=== PATIENT | male | born 1955 | race Caucasian/White ===

== ENCOUNTER 2018-12-29 11:31 | Day surgery (SDC) | payer OTHER ==
[2018-12-25 15:43] VITALS: BMI 28.7
[~2018-12-29 11:31] MED LIST: CYCLOPENTOLATE HCL 1% OPHTH SOLN 2 ML BOTTLE OD SCH; KETOROLAC TROMETHAMINE 0.5% EYE DROP 1 DROP DROPS OD SCH; OFLOXACIN 0.3% OPHTHALMIC SOLUTION 5 ML BOTTLE OD SCH; PHENYLEPHRINE 2.5% OPHTH SOLN 15 ML BOTTLE OD SCH; TROPICAMIDE 1% OPHTH SOLN 15 ML BOTTLE OD SCH
[2018-12-29] MEDS ORDERED: CYCLOPENTOLATE HCL 1% OPHTH SOLN 2 ML BOTTLE ONE (11:43)
[2018-12-29] MEDS ORDERED: OFLOXACIN 0.3% OPHTHALMIC SOLUTION 5 ML BOTTLE ONE (11:43)
[2018-12-29] MEDS ORDERED: KETOROLAC TROMETHAMINE 0.5% EYE DROP 1 DROP DROPS ONE (11:43)
[2018-12-29] MEDS ORDERED: EPI-SHUGARCAINE (EPINEPHRINE 0.025% & LIDOCAINE-PF 0.75%) 4ML ONE (11:44)
[2018-12-29] MEDS ORDERED: TROPICAMIDE 1% OPHTH SOLN 15 ML BOTTLE ONE (11:44)
[2018-12-29] MEDS ORDERED: PHENYLEPHRINE 2.5% OPHTH SOLN 15 ML BOTTLE ONE (11:44)
[2018-12-29] MEDS ORDERED: NEO/POLYMYX B SULF/DEXAMETH OPHTHALMIC 5ML BOTTLE ONE (11:45)
[2018-12-29] MEDS ORDERED: POVIDONE-IODINE 5% OPHTHALMIC PREP 30 ML SOLUTION ONE (11:45)
[2018-12-29] MEDS ORDERED: TETRACAINE 0.5% OPHTH SOLN 2 ML BOTTLE ONE (11:45)
[2018-12-29] MEDS ORDERED: ACETYLCHOLINE 1:100 INTRA-OCUL 20 MG/2 ML KIT ONE ×2 (11:45→12:51)
[2018-12-29] MEDS ORDERED: PHENYLEPHRINE 2.5% OPHTH SOLN 15 ML BOTTLE OD ONE ×4 (12:05→12:20)
[2018-12-29] MEDS ORDERED: TROPICAMIDE 1% OPHTH SOLN 15 ML BOTTLE OD ONE ×4 (12:05→12:20)
[2018-12-29] MEDS ORDERED: CYCLOPENTOLATE HCL 1% OPHTH SOLN 2 ML BOTTLE OD ONE ×4 (12:05→12:20)
[2018-12-29] MEDS ORDERED: OFLOXACIN 0.3% OPHTHALMIC SOLUTION 5 ML BOTTLE OD ONE ×4 (12:05→12:20)
[2018-12-29] MEDS ORDERED: KETOROLAC TROMETHAMINE 0.5% EYE DROP 1 DROP DROPS OD ONE ×4 (12:05→12:20)
[2018-12-29] MEDS ORDERED: ACETAMINOPHEN 325 MG TABLET (FP) PO PRN (12:40)
[2018-12-29] MEDS ORDERED: MIDAZOLAM HCL 2 MG/2 ML SINGLE DOSE VIAL ONE (13:00)
[2018-12-29 14:45] VITALS: BP 121/65; PULSE 56; TEMP 98.1
--- NOTE | 2018-12-30 00:56 | OP ---
DATE OF OPERATION: 12/29/2018 PREOPERATIVE DIAGNOSIS: Cataract, right eye. POSTOPERATIVE DIAGNOSIS: Cataract, right eye. PROCEDURE: Cataract extraction via phacoemulsification with insertion of posterior chamber lens implant, right eye. SURGEON: Sandra Mcfarland MD BAG MACHINE SET UP OPERATOR: Sandra Mcfarland MD ANESTHESIA: Topical with sedation. ESTIMATED BLOOD LOSS: Less than 1 mL. COMPLICATIONS: None. SPECIMENS: None. DESCRIPTION OF PROCEDURE: The patient was identified in the holding area. After all risks, benefits, and alternatives were explained to the patient, informed consent was obtained. The right eye was marked with a marking pen. The patient then entered the operating room on an eye stretcher. After formal timeout was performed, topical tetracaine eye drops were instilled into the right eye. The right eye was then prepped and draped in the usual sterile fashion. An eyelid speculum was placed between the eyelids of the right eye. A supratemporal paracentesis incision was created using a 15-degree blade. Topical preservative-free epinephrine and preservative-free lidocaine was then entered into the anterior chamber. Viscoelastic was then directed into the anterior chamber. A 2.4-mm keratome blade was then used to make an infratemporal incision. A 360-degree continuous curvilinear capsulorrhexis was then created using bent cystotome and Utrata forceps. Hydrodissection was performed using balanced saline solution on a cannula. Phacoemulsification was introduced and disassembled the nucleus in its entirety. Irrigation/aspiration was then used to remove any remaining cortical material from the eye. The capsular bag was reformed using viscoelastic. An Thiago mode SV25T0 with a power of 15.0 diopters, serial number [id number], was inspected and found to be defect free and injected into the capsular bag. Irrigation/aspiration was then used to remove any remaining cortical material from the eye and viscoelastic from the eye, especially posterior to the optic. Then intracameral injection of Miochol was then administered and then the pupil came down and was round. All wounds were hydrated with balanced-saline solution and noted to be water tight. Then the intraocular lens was centered, again using a Sinskey hook and the centration of the lens was confirmed using the Purkinje images of the microscope light reflex until it was noted that the light reflex was perfectly centered into the center of the optic and the center of the ring. Once that was confirmed again, all wounds were then reconfirmed to be water tight. It was noted that the anterior chamber was deep to the eye and had adequate pressure. The lens was perfectly centered in the capsular bag and there was red reflex present. Topical antibiotic eye drops and ointment were then administered to the right eye. The eyelid speculum was removed from the right eye. The right eye was shielded. Patient tolerated the procedure well and left the operating room in stable condition. Will follow up in the eye clinic tomorrow morning at 10 o'clock. SANDRA MCFARLAND M.D. [id number]
== END 2018-12-29 14:55 | disposition home or self-care (01) ==
LOC: FASU 11:31
PROVIDERS: ATTEND Ophthalmology
PROC: 08RJ3JZ Replacement of Right Lens with Synthetic Substitute, Percutaneous Approach (ICD-10-PCS; principal; 2018-12-29 13:22)
DX: H26.9 Unspecified cataract (principal)